=== PATIENT | male | born 1990 | race Hispanic/Latino ===

== ENCOUNTER 2019-10-24 17:55 | Emergency (ER) | payer SELFPAY ==
[2019-10-24 18:34] LABS: #Basophils 0.1 thou/uL (0.0-0.2); #Eosinphils 0.1 thou/uL (0.0-0.7); #Monocytes 1.5 thou/uL (0.11-0.59); #Neutrophils 10.9 thou/uL (1.40-6.50); %Basophils 0.6 % (0.0-1.0); %Eosinophils 0.5 % (0.0-10.0); %Lymphocytes 13.9 % (21.0-51.0); %Monocytes 10.3 % (0.0-10.0); %Neutrophils 74.8 % (42.0-75.0); Hemoglobin 15.8 g/dL (14.0-18.0); Mean Corpuscular HGB CONC 32.1 g/dL (32.0-36.0); Mean Corpuscular Hemoglobin 26.9 pg (27.0-31.0); Mean Corpuscular Volume 83.8 fL (78.0-98.0); Mean Platelet Volume 9.1 fL (7.4-10.4); Platelet Count 204 thou/uL (130-400); RBC Distribution Width 11.7 % (11.5-14.5); Red Blood Cell (RBC) Count 5.89 mill/uL (4.70-6.10); White Blood Cell (WBC) Count 14.6 thou/uL (4.8-10.8)
[2019-10-24 18:46] LABS: Anion Gap 18 mmol/L (10-20); BUN (Urea Nitrogen) 9 mg/dL (8.9-20.6); Calc. Creatinine Clearance 0 mL/min (70-130); Calcium 9.6 mg/dL (7.8-10.44); Carbon Dioxide 20 mmol/L (22-29); Chloride 102 mmol/L (98-107); Estimated GFR-MDRD Greater than 90; Glucose 99 mg/dL (70-105); Potassium 3.8 mmol/L (3.5-5.1); Sodium 136 mmol/L (136-145)
--- NOTE | 2019-10-24 18:47 | CT ---
Exam: Facial bone CT without contrast HISTORY: Dental pain. Facial swelling after having wisdom teeth pulled 4 days ago. Difficulty swallow ing. COMPARISON: None FINDINGS: Visualized brain parenchyma has appropriate attenuation Bilateral ocular lenses are appropriately located. Both globes are intact. Retrobulbar fat is preserv ed. Symmetric attenuation of the optic nerves and ocular rectus muscles Sinuses: Adequate aeration of the paranasal sinuses and mastoid air cells Coronal images demonstrate patent bilateral ostiomeatal complexes Osseous margins of the sinuses and orbits are maintained Intact mandible, maxillary ridge Intact zygomatic arch There is a resection cavity on the posterior aspect of the right mandible compatible with patient's h istory of wisdom extraction. Small focus of hypoattenuation air are likely iatrogenic. There is mild edematous change involving the posterior right mandibular gingival tissues. There is no evidence of a drainable abscess. No obvious masses within the oral cavity. Midline fatty raphae of the tongue is preserved Epiglottis has a normal caliber. Preepiglottic fat is preserved Symmetric attenuation of the parotid glands Asymmetric edema of the right submandibular gland. There are mildly enlarged right neck lymph nodes. Last Scourer enlarged right level II lymph node measures 1.6 x 1.1 cm. Mild induration of the right facial subcutaneous fat and platysma. Additional edematous changes noted in the right submandib ular region. Asymmetric edema of the right mylohyoid muscle. IMPRESSION: 1. Findings compatible with a right mandibular molar tooth extraction. Post procedural changes are fields spected at the extraction site. There is edema involving the posterior right sublingual space/floor of mouth. There does not appear to be a drainable abscess. Lack of contrast limits evaluation. 2. Reactive lymphadenopathy in the right face involving enlarged right level I and level II lymph nod es. There is induration and edema of the overlying subcutaneous fat and platysma. 3. Asymmetric edema of the right submandibular gland without associated sialolith. Findings are presu med to be reactive. Transcribed Date/Time: 10/24/2019 6:59 PM
--- NOTE | 2019-10-24 19:02 | CT ---
Exam: Postcontrast soft tissue neck CT HISTORY: Recent right mandible extraction. Persistent pain and swelling. COMPARISON: None Correlation: Facial bone CT: 10/24/2019 FINDINGS: No abnormal enhancement in the visualized orbits and brain parenchyma Sinuses: Adequate aeration Appropriate enhancement of the parotid glands Appropriate enhancement of the thyroid gland Appropriate attenuation and enhancement of the paraspinal muscles Central spinal canal and neural foramina are patent. No evidence of a cervical spine fracture. No acute abnormality in the visualized upper mediastinum and lung apices. There is postsurgical change compatible with a resection of the posterior-most right mandibular molar tooth. There is edema in the posterior right sublingual space. There is asymmetric edema involving the right mylohyoid muscle. There is no evidence of an abscess. There is edema and enhancement involv ing the right submandibular gland. No evidence of a sialolith. There are enlarged right level I and level II lymph nodes. Enlarged right level II lymph node measures 1.7 x 1.4 cm. Enlarged right level IB lymph node measures 1.7 x 1.1 cm. There is induration of the subcutaneous fat along the right mandible and submandibular region. There is mild edema involving the associated platysma. Appropriate attenuation visualized carotid and vertebral arteries. Epiglottis has a normal caliber. Preepiglottic fat is preserved. Supraglottic, glottic and subglottic larynx are unremarkable No abnormal attenuation at the nasopharynx. No obvious masses within the oral cavity. Midline fatty r aphae of the tongue is preserved IMPRESSION: 1. Findings compatible with recent resection of the right mandibular molar tooth. 2. Extensive edema involving the right face and associated soft tissues as described above. No eviden ce of a drainable abscess. 3. Lymphadenopathy is presumed to be reactive. 4. Edema of the right submandibular gland is presumed to be reactive. No evidence of a sialolith. Transcribed Date/Time: 10/24/2019 7:09 PM
[2019-10-24] MEDS ORDERED: Clindamycin/D5W 600 mg/50 ml Premix Bag ONE (19:17)
[2019-10-24] MEDS ORDERED: Morphine 4 MG/ML VIAL ONE (19:17)
[2019-10-24] MEDS ORDERED: Ondansetron PF 4 MG/2 ML Vial ONE (19:17)
== END 2019-10-24 20:18 | disposition home or self-care (01) ==
LOC: NAV ERS 17:55
DX: K08.89 Other specified disorders of teeth and supporting structures (principal); I88.9 Nonspecific lymphadenitis, unspecified; F17.210 Nicotine dependence, cigarettes, uncomplicated; J45.909 Unspecified asthma, uncomplicated; Z79.899 Other long term (current) drug therapy
CPT/HCPCS: 70486; 70492; 80048; 85025; 96365; 96375; J2270; J2405; J3490

== ENCOUNTER 2023-04-02 16:05 | Emergency (ER) | payer MEDICAID, OTHER, SELFPAY ==
[~2023-04-02 16:05] MED LIST: Iopamidol 370 76% 100 ML VIAL ONE
[2023-04-02] MEDS ORDERED: Morphine 2 MG/ML VIAL ONE (16:48)
[2023-04-02] MEDS ORDERED: Aspirin Chewable 81 MG TAB ONE (16:48)
[2023-04-02] MEDS ORDERED: Ondansetron PF 4 MG/2 ML Vial ONE (16:48)
[2023-04-02 16:57] LABS: #Basophils 0.1 thou/uL (0.0-0.2); #Lymphocytes 2.2 thou/uL (1.20-3.40); #Monocytes 0.8 thou/uL (0.11-0.59); #Neutrophils 9.8 thou/uL (1.40-6.50); %Eosinophils 0.2 % (0.0-10.0); %Lymphocytes 17.1 % (21.0-51.0); %Neutrophils 75.8 % (42.0-75.0); Hemoglobin 16.6 g/dL (14.0-18.0); Mean Corpuscular HGB CONC 32.6 g/dL (32.0-36.0); Mean Corpuscular Hemoglobin 27.4 pg (27.0-31.0); Mean Corpuscular Volume 83.9 fl (78.0-98.0); Mean Platelet Volume 7.9 fL (7.4-10.4); Platelet Count 248 10x3/uL (130-400); RBC Distribution Width 12.2 % (11.5-14.5); Red Blood Cell (RBC) Count 6.08 mill/uL (4.70-6.10); White Blood Cell (WBC) Count 12.9 10x3/uL (4.8-10.8)
[2023-04-02 17:10] LABS: ALT (SGPT) 25 U/L (8-55); AST (SGOT) 22 U/L (5-34); Albumin 4.4 g/dL (3.5-5.0); Alkaline Phosphatase 78 U/L (40-110); Anion Gap 16 mmol/L (10-20); BUN (Urea Nitrogen) 8 mg/dL (8.9-20.6); Bilirubin, Total 0.6 mg/dL (0.2-1.2); Calc. Creatinine Clearance 0 mL/min (70-130); Calcium 9.1 mg/dL (7.8-10.44); Carbon Dioxide 19 mmol/L (22-29); Chloride 107 mmol/L (98-107); Estimated GFR 120; Glucose 92 mg/dL (70-105); Potassium 3.7 mmol/L (3.5-5.1); Protein, Total 7.4 g/dL (6.0-8.3); Sodium 138 mmol/L (136-145)
[2023-04-02 17:11] LABS: Troponin I 0.017 ng/mL (< 0.028)
[2023-04-02] MEDS ORDERED: Ketorolac Tromethamine 30 MG (1 mL) VIAL ONE (17:48)
[2023-04-02] MEDS ORDERED: methylPREDNISolone Sod Succ 40 MG VIAL IVP SCH (18:00)
[2023-04-02 18:06] LABS: Bilirubin Negative (Negative); Blood, Urine Negative (Negative); Glucose, Urine (Dipstick) Negative (Negative); Ketone, Urine 15 mg/dL (Negative); Leukocyte Negative (Negative); Nitrite Negative (Negative); Protein, Urine (Dipstick) 30 mg/dL (Neg-Trace); Urobilinogen 0.2 mg/dL (Less than 2)
[2023-04-02] MEDS ORDERED: Lorazepam 2 MG/ML VIAL ONE (18:07)
[2023-04-02 18:15] LABS: Amphetamine Not Detected (NotDetected); Barbiturates Screen Not Detected (NotDetected); Benzodiazepine Screen Not Detected (NotDetected); Cocaine Metabolite Screen Not Detected (NotDetected); Methadone Not Detected (NotDetected); Methamphetamine Not Detected (NotDetected); Opiate Screen Detected (NotDetected); Oxycodone Screen Not Detected (NotDetected); Phencyclidine (PCP) Not Detected (NotDetected); THC/Cannabinoid Screen Detected (NotDetected); Tricyclic Screen Not Detected (NotDetected)
[2023-04-02 18:18] LABS: Clarity Clear (Clear)
[2023-04-02 18:19] LABS: Mucous/LPF 1+ LPF (<2+); Squamous Epithelial 0-3 HPF (0-3); WBC/HPF 0-3 HPF (0-3)
[2023-04-02 18:20] LABS: Urine Culture Reflex No No
== END 2023-04-02 18:55 | disposition home or self-care (01) ==
LOC: NAV ERS 16:05
DX: R07.89 Other chest pain (principal); F17.210 Nicotine dependence, cigarettes, uncomplicated
CPT/HCPCS: 71045; 71275; 74174; 80053; 80306; 81001; 84484; 85025; 85379; 96374; 96375; J1885; J2060; J2272; J2405; J2920; Q9967

== ENCOUNTER 2023-04-25 09:27 | Outpatient (CLI) | payer OTHER | END 2023-04-25 09:28 | disposition home or self-care (01) | LOC: NAV RAD 09:27 | PROVIDERS: ATTEND Family Medicine | DX: M25.511 Pain in right shoulder (principal) ==